=== PATIENT | male | born 1980 | race Caucasian/White ===

== ENCOUNTER 2018-09-21 22:33 | Emergency (ER) | payer MEDICAID ==
[~2018-09-21] VITALS: Ht 175.3 cm; Wt 81.6 kg
[2018-09-21 22:38] VITALS: BP_SYST 148
--- NOTE | 2018-09-21 22:45 | NUR ---
Patient to ER bed CH1 for evaluation. Side rails up.
--- NOTE | 2018-09-21 22:49 | NUR ---
Pt BIB [facility] for medical clearance. Pt waved down police vehicle asking for help and has a warrant out for his arrest. Pt is tearful and distraught, vital signs are stable. No medical history. Will continue to monitor
--- NOTE | 2018-09-21 23:07 | NUR ---
ER Dr. Mckinney at bedside examining patient.
[2018-09-21 23:23] VITALS: BP_SYST 148
--- NOTE | 2018-09-21 23:25 | NUR ---
Note holden in ED - 09/21/18 at 2325 by [email or web address] Patient given written and verbal discharge instructions and verbalizes understanding. ER discussed with patient the results and treatment provided. Patient in stable condition. ID arm band removed. Patient educated on pain management and to follow up with PMD. Pain Scale 0. Opportunity for questions provided and answered. Medication side effect fact sheet provided.
--- NOTE | 2018-09-21 23:25 | NUR ---
Patient given written and verbal discharge instructions and verbalizes understanding. ER MD discussed with patient the results and treatment provided. Patient in stable condition. ID arm band removed. Patient educated on pain management and to follow up with PMD. Pain Scale 0. Opportunity for questions provided and answered. Medication side effect fact sheet provided.
== END 2018-09-21 23:23 ==
LOC: SED 22:33
DX: Z02.89 Encounter for other administrative examinations (principal); F31.9 Bipolar disorder, unspecified
CPT/HCPCS: 99283